=== PATIENT | female | born 1990 | race Caucasian/White ===

== ENCOUNTER → 2018-06-06 14:52 | Outpatient (CLI) | payer SELFPAY ==
--- NOTE | 2018-06-06 14:55 | US_ITS ---
US OB /maternal detail: INDICATION: ITS.REASON: US OB Complete ORDERING PHYSICIAN: Jonn Lopez MD PATIENT AGE: 27 years TECHNIQUE: ultrasound transabdominal scanning. COMPARISON: No previous relevant studies. FINDINGS: Single viable intrauterine gestation. Breech position. Placenta: Anterior placenta grade 1. There is average amount fluid. The cervix appears satisfactory. Closed and measuring 4 cm in length. Complete survey performed and was unremarkable on the submitted images as in PACS. No discrete anomalies identified on survey imaging by technologist. Active fetus. Three-vessel cord with satisfactory umbilical cord insertion. 4- chamber heart noted. Survey of brain & ventricles unremarkable. Face and neck survey unremarkable. Diaphragm and chest views unremarkable. Abdomen: Both kidneys noted and unremarkable. Stomach noted and satisfactory. Spine: Survey of the spine satisfactory with no anomalies identified nor imaged. Both arms and legs noted. Amniotic Fluid: Adequate. Maternal adnexa: No significant findings. Measurements: Average ultrasound age 22w0d. Gestational Age 22w5d. Estimated due date by ultrasound age 210-10-2018. Estimated weight 491 grams. BPD = 21w5d OFD = 22w1d HC = 21w1d AC = 23w0d FL = 21w6d Growth Percentile= 24% Heart Rate = 140 Cerebellum = 22w0d Humerus = 22w2d HC/AC is 1.04 (1.06-1.25). CI is 76% (70-86%). FL/BPD is 72%. FL/AC is 21%(20-24%). IMPRESSION: There is a single live fetus which is in breech presentation with an average ultrasound age of 22 weeks and 0 days. Estimated due date by ultrasound is 10/10/2018. No obvious anomalies. Please see above for detail.
== END ==
PROVIDERS: Family Provider Internal Medicine Adolescent Medicine; PCP Internal Medicine Adolescent Medicine; Visit Provider Nurse Practitioner Obstetrics & Gynecology
DX: Z36.0 Encounter for antenatal screening for chromosomal anomalies (principal)
CPT/HCPCS: 76811

== ENCOUNTER → 2019-12-16 09:59 | Outpatient (CLI) | payer OTHER, SELFPAY ==
--- NOTE | 2019-12-16 10:00 | US_ITS ---
PROCEDURE: US OB /MATERNAL DETAIL CLINICAL INDICATION: ob complete Anatomy scan COMPARISON: OBFEMAT US OB /maternal detail from 06/06/2018 FINDINGS: There is a single live fetus which is in cephalic presentation. heart and body motion is noted. The cervix is closed and measures 4 cm transabdominal. The placenta is posterior and grade 1. Complete survey performed and was unremarkable on the submitted images as in PACS. No discrete anomalies identified on survey imaging by technologist. Active fetus. Three-vessel cord with satisfactory umbilical cord insertion. 4- chamber heart noted. Survey of brain & ventricles Unremarkable. Face and neck survey unremarkable. Diaphragm and chest views unremarkable. Abdomen: Both kidneys noted and unremarkable. Stomach noted and satisfactory. Spine: Survey of the spine satisfactory with no anomalies identified nor imaged. Both arms and legs noted. Amniotic Fluid: Adequate. Maternal adnexa: No significant findings. Measurements: Average ultrasound age 26weeks 4days. Gestational Age 26weeks 4days Estimated due date by ultrasound age 0803/19/2020. Estimated weight 1,009g BPD = 26weeks OFD = 26 weeks 1 day HC = 25weeks 5days AC = 28weeks FL = 26weeks 1day Growth Percentile= 55% Heart Rate = 133bpm Cerebellum = 26weeks 4days Humerus = 26weeks HC/AC is 1 CI is 0.76 FL/BPD is 0.75 FL/AC is 0.2 IMPRESSION: There is a live intrauterine at 26 weeks 4 days in cephalic presentation. heart body motion noted. All parameters correlate. No obvious anomalies. Please see above for detail Dictated by: Elias Yates MD 12/16/2019 14:11 Electronically signed by Elias Yates MD in [place] 12/16/2019 14:11
== END ==
PROVIDERS: PCP Internal Medicine Adolescent Medicine; Visit Provider Nurse Practitioner Obstetrics & Gynecology
DX: Z36.0 Encounter for antenatal screening for chromosomal anomalies (principal)
CPT/HCPCS: 76811

== ENCOUNTER → 2021-05-08 14:48 | Outpatient (CLI) | payer OTHER, SELFPAY ==
--- NOTE | 2021-05-08 14:54 | US_ITS ---
PROCEDURE: US OB /MATERNAL DETAIL CLINICAL INDICATION: 20 wk anatomy scan , US OB COMPLETE COMPARISON: US US OB /MATERNAL DETAIL from 12/16/2019 FINDINGS: Single live IUP is present with an average ultrasound age of 17 weeks 5 days. There is cephalic presentation. The cervix is closed measuring 4 cm. Placenta is posterior and high and grade 1. Complete survey performed and was unremarkable on the submitted images as in PACS. No discrete anomalies identified on survey imaging by technologist. Active fetus. Three-vessel cord with satisfactory umbilical cord insertion. 4- chamber heart noted. Survey of brain & ventricles Unremarkable. Face and neck survey unremarkable. Diaphragm and chest views unremarkable. Abdomen: Both kidneys noted and unremarkable. Stomach noted and satisfactory. Spine: Survey of the spine satisfactory with no anomalies identified nor imaged. Both arms and legs noted. Amniotic Fluid: Adequate. Maternal adnexa: No significant findings. Measurements: Average ultrasound age 17weeks 5days. Gestational Age 17weeks 5days Estimated due date by ultrasound age 0210/11/2021. Estimated weight 204g BPD = 17weeks 5days OFD = 18weeks HC = 17weeks 3days AC = 17weeks 5days FL = 17weeks 6days Growth Percentile= 2 percent% Heart Rate = 149bpm Cerebellum = 17weeks 5days Humerus = 17weeks 4days HC/AC is 1.17 CI is 0.76 FL/BPD is 0.67 FL/AC is 0.21 IMPRESSION: Live IUP in cephalic presentation at 17 weeks 5 days. Estimated weight is 204 g which is 2 percentile assuming patient's LMP is correct. All parameters correlate with no obvious anomalies. Please see above for detail Dictated by: Elias Yates MD 05/08/2021 16:33 Elias Yates MD in [place] 05/08/2021 16:33
== END ==
PROVIDERS: PCP Internal Medicine Adolescent Medicine; Visit Provider Nurse Practitioner Obstetrics & Gynecology
DX: Z36.0 Encounter for antenatal screening for chromosomal anomalies (principal)
CPT/HCPCS: 76811

== ENCOUNTER 2022-12-13 16:53 | Emergency (ER) | payer BC, OTHER, SELFPAY ==
[2022-12-13 17:30] VITALS: BP 151/91; PULSE 105; RESP 18; TEMP 37.4; O2SAT 96; BMI 24.5
--- NOTE | 2022-12-13 17:38 | EXP.UTC ---
Discharge Plan Disposition Patient Disposition: Home, Self-Care Condition: Good Prescriptions Prescriptions: New cephalexin 500 mg capsule 500 mg PO QID Qty: 40 0RF Referrals Follow up/Referrals: Murray Peres MD [Primary Care Provider] - See instructions Activity Restrictions/Add. Instructions Additional Instructions/Restrictions: Drink plenty of fluids. Take tylenol or ibuprofen for pain or fever. Take the medications as directed. Follow up with your regular doctor. Call them in the morning to let them know whats going on. GO TO THE ER FOR ANY WORSENING SYMPTOMS Apply warm wet compresses to the affected sites three or four times per day for 15 minutes as tolerated. Clinical Impressions Clinical Impression: Acute mastitis of left breast Instructions Patient Instructions: DI for Mastitis Discharge ED Provider: Wale Lloyd [facility] General Stated complaint: body aches, poss mastitis Time Seen by Provider: 12/13/22 17:38 History of Present Illness Provider Complaint: She states that for the past 3 days she has had a tender red and warm area on her left breast. She is currently breast feeding her 13 month old child. She denies fever, but she has had malaise since yesterday. Related Data Previous Rx's Medication Instructions Recorded cephalexin 500 mg capsule 500 mg PO QID #40 caps 12/13/22 Allergies Allergy/AdvReac Type Severity Reaction Status Date / Time No Known Allergies Allergy Verified 12/13/22 17:46 [facility] Disclaimer: The information contained in this section may have been updated after the patient was seen, as this information can be updated by other users. Social History Smoking Status: Never smoker alcohol intake: never current occupational status: employed Travel in the last 8 weeks: None ROS Obtained: Yes All systems reviewed & no additional complaints except as documented Constitutional Constitutional: Denies chills and Denies fever(s) Eyes Eyes: Denies eye discharge ENT Ears, Nose, Mouth, and Throat: Denies dizziness, Denies otalgia and Denies sore throat Cardiovascular Cardiovascular: Denies chest pain Respiratory Respiratory: Denies shortness of breath, Denies chest congestion, Denies cough, Denies stridor and Denies wheezing Gastrointestinal Gastrointestingal: Denies nausea or vomiting Musculoskeletal Musculoskeletal: Reports system reviewed and no additional complaints, except as documented and Denies arthralgias Integumentary/Breasts Skin/Breast: Reports as per HPI Neurologic Neurologic: Denies dizziness and Denies paresthesias Allergic/Immunologic Allergic/Immunologic: Denies wheezing Physical Exam General General appearance: alert and in no apparent distress Head Head exam: atraumatic, normocephalic and normal inspection Eye Eye exam: Present normal appearance, PERRL and EOMI ENT ENT exam: Present normal exam, normal oropharynx, mucous membranes moist, TM's normal bilaterally and normal external ear exam Neck Neck exam: Present normal inspection, full ROM and trachea midline; Absent meningismus or lymphadenopathy Chest Chest inspection: Present normal inspection and symmetric chest wall rise; Absent tenderness Expanded Chest Exam Breast: left: erythema and tenderness Respiratory Respiratory exam: Present normal lung sounds bilaterally; Absent respiratory distress Cardiovascular Cardiovascular exam: Present regular rate and normal rhythm; Absent JVD Abdominal Exam Abdominal exam: Present soft and normal bowel sounds; Absent distention, tenderness or guarding Extremities Exam Extremities exam: Present normal inspection, full ROM and normal capillary refill; Absent calf tenderness Back Exam Back exam: Present normal inspection; Absent tenderness Neurological Exam Neurological exam: Present alert and oriented X3 Psychiatric Psychiatric exam: Present normal affect and sol
[2022-12-13 18:50] VITALS: BP 151/91; PULSE 105; RESP 18; TEMP 37.4; O2SAT 96
== END 2022-12-13 18:50 | disposition home or self-care (01) ==
PROVIDERS: Emergency Provider Nurse Practitioner Family; PCP Internal Medicine Adolescent Medicine
DX: N61.0 Mastitis without abscess (principal)
CPT/HCPCS: 96372; 99212; 99214; G0463; J0696

== ENCOUNTER → 2023-03-11 12:57 | Outpatient (CLI) | payer BC, OTHER, SELFPAY ==
--- NOTE | 2023-03-11 12:57 | US_ITS ---
PROCEDURE: US OB <= 14 WEEKS FETUS CLINICAL INDICATION: Dates COMPARISON: No exams were available for comparison FINDINGS: Transvaginal sonographic images of the pelvis were obtained. From her last menstrual period she is 6weeks 5days. An intrauterine gestational sac is present with a pole with a crown-rump length of 0.76cm correlating to gestational age of 6weeks 5days. heart tones are present with an FHR of 118bpm. Yolk sac is noted. The yolk sac measures 3.6mm. The right ovary is seen and appears normal. Measuring 3.6 cm x 3.3 cm x 3.3 cm. There is a 2.8 cm follicle. The left ovary is seen and appears normal. Measuring 2.8 cm x 2.6 cm x 1.4 cm. There are several small peripheral follicles There is no fluid in the cul-de-sac. IMPRESSION: 1. Viable fetus within the uterine cavity. 2. Fetus measures 6 weeks 5 days. 3. Estimated due date by ultrasound is 10/30/2023 4. Both ovaries are seen and appear normal with a follicle in the right ovary. Dictated by: Jonn Lopez MD 03/11/2023 16:54 Jonn Lopez MD in [place] 03/11/2023 16:54
== END ==
LOC: RAD 12:57
PROVIDERS: PCP Internal Medicine Adolescent Medicine; Visit Provider Nurse Practitioner Obstetrics & Gynecology
DX: Z34.91 Encounter for supervision of normal pregnancy, unspecified, first trimester (principal)
CPT/HCPCS: 76801

== ENCOUNTER → 2023-04-15 10:48 | Outpatient (CLI) | payer BC, OTHER, SELFPAY ==
--- NOTE | 2023-04-15 10:50 | US_ITS ---
PROCEDURE: US OB <= 14 WEEKS FETUS CLINICAL INDICATION: bleeding COMPARISON: US US OB <= 14 WEEKS FETUS from 03/11/2023 FINDINGS: Transvaginal sonographic images of the pelvis were obtained. From her established due date she is 11weeks 5days. An intrauterine gestational sac is present with a pole with a crown-rump length of 5.42cm correlating to gestational age of 12weeks 1day. heart tones are present with an FHR of 165bpm. The right ovary is seen and appears normal. The right ovary measures 3.3 cm x 3.5 cm x 2.7 cm. The left ovary is seen and appears normal. The left ovary measures 2.4 cm x 2.9 cm x 1.2 cm. There is no fluid in the cul-de-sac. IMPRESSION: 1. Viable fetus within the uterine cavity. There has been good interval growth, the size and dates are appropriate. 2. No obvious cause for her vaginal bleeding. No evidence of subchorionic hemorrhage. 3. Both ovaries are seen and appear normal. 4. No fluid in the cul-de-sac. Dictated by: Jonn Lopez MD 04/15/2023 16:18 Jonn Lopez MD in [place] 04/15/2023 16:18
== END ==
PROVIDERS: PCP Internal Medicine Adolescent Medicine; Visit Provider Nurse Practitioner Obstetrics & Gynecology
DX: O46.91 Antepartum hemorrhage, unspecified, first trimester (principal)
CPT/HCPCS: 76801

== ENCOUNTER → 2023-05-21 11:53 | Outpatient (CLI) | payer BC, OTHER, SELFPAY ==
[2023-05-21 13:35] LABS: Basophils % 0.3 % (0.1-2.0); Eosinophils # 0.4 K/mm3 (0.0-0.4); Eosinophils % 5.2 % (0.1-12.0); Hematocrit 41.3 % (37.0-47.0); Hemoglobin 13.1 g/dL (12.2-16.2); Lymphocytes % 25.6 % (10-50); Mean Corpuscular HGB Conc 31.8 g/dL (31.8-35.4); Mean Corpuscular Hemoglobin 29.9 pg (27.0-31.2); Mean Corpuscular Volume 93.9 fl (81-99); Mean Platelet Volume 8.9 fl (7.4-10.4); Monocytes # 0.3 K/mm3 (0.1-1.0); Monocytes % 4.1 % (1.7-9.3); Neutrophils # 5.1 K/mm3 (1.8-7.8); Neutrophils % 64.8 % (37.0-80.0); Platelet Count 195 K/mm3 (142-424); Red Cell Distribution Width 13.4 % (11.5-17.5); White Blood Count 7.9 K/mm3 (4.8-10.8)
[2023-05-23 14:43] LABS: Rapid Plasma Reagin Ab Titer Non Reactive titer (NonRea<1:1)
[2023-05-28 08:27] LABS: HIV Screen 4th Generation wRfx Non Reactive; Hepatitis B Surface Antigen Negative; Hepatitis C Antibody Non Reactive
[2023-05-28 08:28] LABS: Rubella Antibodies, IgG 1.06
== END ==
PROVIDERS: PCP Internal Medicine Adolescent Medicine; Visit Provider Obstetrics & Gynecology
DX: Z34.92 Encounter for supervision of normal pregnancy, unspecified, second trimester (principal); Z3A.16 16 weeks gestation of pregnancy
CPT/HCPCS: 36415; 85025; 86593; 86703; 86762; 86850; 87086; 87340; 87380; G0432

== ENCOUNTER → 2023-06-11 12:47 | Outpatient (CLI) | payer BC, OTHER, SELFPAY ==
--- NOTE | 2023-06-11 12:48 | US_ITS ---
PROCEDURE: US OB /MATERNAL DETAIL CLINICAL INDICATION: 20 week anatomy scan COMPARISON: US US OB <= 14 WEEKS FETUS from 04/15/2023 FINDINGS: Transabdominal sonographic images of the pelvis were obtained. From her established due date she is 19 weeks 6 days. Single viable intrauterine gestation. Cephalic position. Placenta: Posteriorplacenta grade 1. The placenta is low lying and currently 0.76 cm from the internal os. There is an average amount of fluid. The cervix appears satisfactory. Closed and measuring 4.5 cm in length. Complete survey performed and was unremarkable on the submitted images as in PACS. No discrete anomalies identified on survey imaging by technologist. Active fetus. Three-vessel cord with satisfactory umbilical cord insertion. 4- chamber heart noted. Situs, aortic arch, RVOT, LVOT, three-vessel view appear normal. Survey of brain & ventricles Unremarkable. Choroid plexus, cerebellum, cisterna magna, thalamus appear normal. Face and neck survey unremarkable. Profile, nasion, lips and nose appeared normal. Diaphragm and chest views unremarkable. Abdomen: Both kidneys noted and unremarkable. Stomach and bladder noted and satisfactory. Spine: Survey of the spine satisfactory with no anomalies identified nor imaged. Cervical, thoracic and lower spine appear normal. Both arms and legs noted. Amniotic Fluid: Adequate. Measurements: Average ultrasound age 19weeks 5days. Estimated due date by ultrasound age 0310/31/2023. Estimated weight 296g BPD = 19weeks 4days HC = 19weeks 6days AC = 19weeks 4days FL = 19weeks 4days Growth Percentile= 27 Heart Rate = 143bpm Cerebellum = 19weeks Humerus = 20weeks 2days HC/AC is 1.22 FL/BPD is 0.68 FL/AC is 0.22 IMPRESSION: 1. Viable fetus in the cephalic presentation with a posterior placenta grade 1. 2. The fluid is within normal limits. 3. The placenta is posterior, low lying and currently 0.76 cm from the internal os. Suggest repeat scan at 28 weeks. 4. The anatomical scan appears normal. 5. biometry is consistent with the dates. Dictated by: Jonn Lopez MD 06/11/2023 17:01 Jonn Lopez MD in [place] 06/11/2023 17:01
== END ==
PROVIDERS: PCP Internal Medicine Adolescent Medicine; Visit Provider Obstetrics & Gynecology
DX: Z34.92 Encounter for supervision of normal pregnancy, unspecified, second trimester (principal); Z3A.20 20 weeks gestation of pregnancy
CPT/HCPCS: 76811

== ENCOUNTER 2023-07-30 16:04 | Emergency (ER) | payer BC, OTHER, SELFPAY ==
--- NOTE | 2023-07-30 16:38 | EXP.UTC ---
Discharge Plan Disposition Patient Disposition: Home, Self-Care Condition: Good Prescriptions Prescriptions: New oseltamivir [Tamiflu] 75 mg capsule 75 mg PO BID Qty: 10 0RF No Action Classic 28 mg iron- 800 mcg tablet 1 tab PO DAILY Qty: 60 5RF albuterol sulfate 90 mcg/actuation HFA aerosol inhaler 1 inh inhalation DAILY fluticasone propion-salmeterol 250-50 mcg/dose blister with device 1 inh inhalation BID Referrals Follow up/Referrals: Murray Peres MD [Primary Care Provider] - See instructions Activity Restrictions/Add. Instructions Additional Instructions/Restrictions: Drink plenty of fluids. Take tylenol for pain or fever. Take the medications as directed. Follow up with your regular doctor. 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 GO TO THE ER FOR ANY WORSENING SYMPTOMS Clinical Impressions Clinical Impression: Influenza A, Instructions Patient Instructions: DI for Influenza -- Adult Discharge ED Provider: Wale Lloyd [facility] General Stated complaint: cough, runny nose, fever, sore throat Time Seen by Provider: 07/30/23 16:38 History of Present Illness Provider Complaint: She states that she has ran a fever, had chest congestion, body aches and chills since yesterday. She is 27 weeks . Related Data Home Medications Medication Instructions Recorded Confirmed albuterol sulfate 90 mcg/actuation 1 inh inhalation DAILY asthma 06/18/23 07/30/23 aerosol inhaler fluticasone 250 mcg-salmeterol 50 1 inh inhalation BID asthma 07/30/23 07/30/23 mcg/dose blistr powdr for inhalation Previous Rx's Medication Instructions Recorded vits no.126-ferrous fum 1 tab PO DAILY #60 tabs 05/21/23 28 mg iron-folic acid 800 mcg tablet (Classic ) oseltamivir 75 mg capsule (Tamiflu) 75 mg PO BID #10 caps 07/30/23 Allergies Allergy/AdvReac Type Severity Reaction Status Date / Time No Known Allergies Allergy Verified 07/30/23 17:[address] [facility] Disclaimer: The information contained in this section may have been updated after the patient was seen, as this information can be updated by other users. Medical History Asthma affecting , antepartum Grand multipara Maternal rheumatoid arthritis complicating Request for sterilization Rheumatoid arthritis Rheumatoid arthritis Surgical History H/O hernia repair History of palate surgery History of placement of ear tubes Family History Grandmother Diabetes Social History Smoking Status: Never smoker alcohol intake: never current occupational status: employed Travel in the last 8 weeks: None ROS Obtained: Yes All systems reviewed & no additional complaints except as documented Constitutional Constitutional: Reports chills and Reports fever(s) Eyes Eyes: Denies eye discharge ENT Ears, Nose, Mouth, and Throat: Reports as per HPI Cardiovascular Cardiovascular: Denies chest pain Respiratory Respiratory: Denies chest congestion and Reports cough Gastrointestinal Gastrointestingal: Reports nausea; Denies abdominal pain, constipation, cramping, diarrhea or vomiting Musculoskeletal Musculoskeletal: Denies arthralgias Integumentary/Breasts Skin/Breast: Denies rash Neurologic Neurologic: Denies paresthesias Physical Exam General General appearance: alert and in no apparent distress Head Head exam: atraumatic, normocephalic and normal inspection Eye Eye exam: Present normal appearance, PERRL and EOMI ENT ENT exam: Present normal exam, normal oropharynx, mucous membranes moist, TM's normal bilaterally and normal external ear exam Neck Neck exam: Present normal inspection, full ROM and trachea midline; Absent meningismus or
[2023-07-30 16:40] VITALS: BP 124/72; PULSE 109; RESP 18; TEMP 36.9; O2SAT 96; BMI 29.5
[2023-07-30 16:47] LABS: UTC Influenza A Antigen Positive (Negative); UTC Influenza B Antigen Negative (Negative)
[2023-07-30 17:23] VITALS: BP 124/72; PULSE 109; RESP 18; TEMP 36.9; O2SAT 96
== END 2023-07-30 17:23 | disposition home or self-care (01) ==
PROVIDERS: Emergency Provider Nurse Practitioner Family; PCP Internal Medicine Adolescent Medicine
DX: O98.513 Other viral diseases complicating pregnancy, third trimester (principal); J10.1 Influenza due to other identified influenza virus with other respiratory manifestations; Z3A.27 27 weeks gestation of pregnancy; R50.9 Fever, unspecified; R05.9 Cough, unspecified; R07.0 Pain in throat; R09.81 Nasal congestion; R09.89 Other specified symptoms and signs involving the circulatory and respiratory systems; M79.18 Myalgia, other site
CPT/HCPCS: 87804; 99212; 99214; G0463

== ENCOUNTER → 2023-08-14 12:51 | Outpatient (CLI) | payer BC, OTHER, SELFPAY ==
--- NOTE | 2023-08-14 12:53 | US_ITS ---
PROCEDURE: US OB BIOPHYSICAL PROFILE CLINICAL INDICATION: sga/for placental growth and location COMPARISON: FINDINGS: Transabdominal and transvaginal sonographic images of the uterus were obtained. From her established due date she is 29weeks 0 days.. The following parameters are obtained: Viable fetus in the breech presentation with a posterior placenta grade 2 Average ultrasound age is 30weeks 1day. Estimated due date by ultrasound is 10/22/2023. Estimated weight is 3lb 1oz, 1395 grams. Cervix measures 4.1 cm. The posterior placenta is now 4.2 cm away from the internal cervical os when seen transvaginally. heart rate: 147bpm bpm. BPD: 29weeks 4days OFD: 29weeks 4days HC: 30 weeks 5 days AC: 28 weeks 5 days FL: 30 weeks 0 days HC/AC: 1.15 Cephalic index: 0.8 FL/BPD: 0.74 FL/AC: 0.23 54 percentile Amniotic fluid index: 18.16cm, MVP 6.73 cm. Qualitative AFV: 2 breathing movements: 0 Gross body movements: 2 Tone: 2 Biophysical profile score: 6 No obvious anomalies evident.Kidneys, profile, stomach, bladder, four-chamber heart, three-vessel cord appear normal. IMPRESSION: 1. Viable fetus in the breech presentation with a posterior placenta grade 2. 2. The fluid is within normal limits with an amniotic fluid index of 18.16 cm, MVP 6.73 cm. 3. The posterior placenta is no longer low lying and is now 4.2 centimeters from the cervical internal os. 4. Biophysical profile 6/8 with no breathing movement seen today. Fetus is active. 5. There has been good interval growth with the fetus currently 54th percentile. Dictated by: Jonn Lopez MD 08/18/2023 12:35 Jonn Lopez MD in [place] 08/18/2023 12:35
[2023-08-14 14:41] LABS: Basophils % 0.4 % (0.1-2.0); Eosinophils # 0.6 K/mm3 (0.0-0.4); Eosinophils % 5.8 % (0.1-12.0); Hematocrit 38.4 % (37.0-47.0); Hemoglobin 12.9 g/dL (12.2-16.2); Lymphocytes # 1.8 K/mm3 (0.7-4.5); Mean Corpuscular HGB Conc 33.7 g/dL (31.8-35.4); Mean Platelet Volume 8.8 fl (7.4-10.4); Monocytes # 0.5 K/mm3 (0.1-1.0); Monocytes % 5.8 % (1.7-9.3); Neutrophils # 6.5 K/mm3 (1.8-7.8); Neutrophils % 69.1 % (37.0-80.0); Platelet Count 216 K/mm3 (142-424); Red Blood Count 4.18 M/mm3 (4.20-5.40); Red Cell Distribution Width 13.3 % (11.5-17.5); White Blood Count 9.4 K/mm3 (4.8-10.8)
[2023-08-14 15:14] LABS: Glucose,Fasting 91 mg/dl (74-100)
[2023-08-14 17:29] LABS: Glucose 1 Hour 168 mg/dL (74-100)
== END ==
PROVIDERS: PCP Internal Medicine Adolescent Medicine; Visit Provider Obstetrics & Gynecology
DX: O36.5930 Maternal care for other known or suspected poor fetal growth, third trimester, not applicable or unspecified (principal); Z36.89 Encounter for other specified antenatal screening; Z3A.29 29 weeks gestation of pregnancy
CPT/HCPCS: 36415; 76816; 76819; 82951; 85025

== ENCOUNTER → 2023-08-17 08:03 | Outpatient (CLI) | payer BC, OTHER, SELFPAY ==
[2023-08-17 08:33] LABS: Glucose,Fasting 106 mg/dl (74-100)
[2023-08-17 10:03] LABS: Glucose 1 Hour 158 mg/dL (74-100)
[2023-08-17 10:56] LABS: Glucose 2 Hour 133 mg/dL (74-100)
[2023-08-17 11:52] LABS: Glucose 3 Hour 89 mg/dL (74-100)
== END ==
PROVIDERS: PCP Internal Medicine Adolescent Medicine; Visit Provider Obstetrics & Gynecology
DX: Z34.93 Encounter for supervision of normal pregnancy, unspecified, third trimester (principal); Z3A.29 29 weeks gestation of pregnancy; R73.09 Other abnormal glucose
CPT/HCPCS: 36415; 82951

== ENCOUNTER 2023-09-05 14:37 | Outpatient (CLI) | payer BC, OTHER, SELFPAY ==
--- NOTE | 2023-09-05 14:44 | XR_ITS ---
FINAL REPORT CLINICAL HISTORY: cp/dyspnea/ COMPARISON: None FINDINGS: Two views of the chest were obtained. The heart size and pulmonary vascularity are within normal limits. The mediastinum is normal. No acute pulmonary abnormality is identified. There is no pneumothorax. The bony thorax is intact. IMPRESSION: No active cardiopulmonary disease. Reviewed, Interpreted and Dictated by Kenji Jiménez III, MD Transcribed by Hayley Meyers Authenticated and [facility]
[2023-09-05 15:41] LABS: NT Pro Brain Natriuretic Pep. < 20.0 pg/mL (0-125)
== END 2023-09-05 23:59 ==
LOC: LAB 14:39
PROVIDERS: PCP Internal Medicine Adolescent Medicine; Visit Provider Physician Assistant
DX: R00.0 Tachycardia, unspecified (principal); R06.00 Dyspnea, unspecified; R07.9 Chest pain, unspecified; R42 Dizziness and giddiness; R53.83 Other fatigue; R60.0 Localized edema
CPT/HCPCS: 36415; 71046; 83880; 93270

== ENCOUNTER 2023-09-17 13:05 | Outpatient (CLI) | payer BC, OTHER, SELFPAY ==
--- NOTE | 2023-09-17 13:05 | CA_ITS ---
APPROVED REPORT EXAM: Comprehensive 2D, Doppler, and color-flow Echocardiogram Director Database: Lorraine Cannon CRT Ht: 5 ft 9 in Wt: 207lbs BSA: 2.10 BP: 137/84 mmHg Rhythm: 84 Indications: Preg 32 wks 8 th child, cp, sob, palp 2D Dimensions LA Volume 32.60 mL LA Volume Index 15.20 mL/m2 (M/F) 16-34 M-Mode Dimensions RVDd 2.20 cm (0.9-2.6) LA Diam 3.34 cm (1.9-4.0) LVDd 4.58 cm (3.5-5.7) LVDs 2.78 cm (3.5-5.7) IVSd 1.01 cm (0.6-1.1) PWd 0.72 cm (0.6-1.1) EF (Teich) 69.90% FS 39.30% EDV (Teich) 96.30 mL ESV (Teich) 29.00 mL LV Diastology E Decel Time 160 (160-240 msec) E/A Ratio 1.37 MED A' 9.00 cm/s LAT A' 9.40 cm/s Aortic Valve AO Peak GR. 13.90 mmHg Mitral Valve MV E Max Ronnie. 73.0 (40-130 cm/s) MV A Velocity 53.0 (40-130 cm/s) E/A Ratio 1.37 MV PHT 47.0 ms Pulmonary Valve PV Peak Velocity 133.0 (50-150 cm/s) Tricuspid Valve TR P. Velocity 173.00 cm/s RAP Estimate 10.00 mmHg RVSP 22.00 mmHg Left Ventricle The left ventricle is normal size. The left ventricular systolic function is normal. The left ventricular ejection fraction is within the normal range. There is normal left ventricular wall thickness. There is normal LV segmental wall motion. The left ventricular diastolic function is normal. LVEF is 60%. Right Ventricle The right ventricle is normal size. The right ventricular systolic function is normal. Atria The left atrium size is normal. The right atrium size is normal. There is no Doppler evidence of interatrial shunt. Aortic Valve The aortic valve is normal in structure. The aortic valve is trileaflet. There is no aortic valvular stenosis. No aortic regurgitation is present. Mitral Valve The mitral valve is normal in structure. No evidence of mitral valve stenosis. There is no mitral valve regurgitation noted. Tricuspid Valve The tricuspid valve leaflets are thin and pliable. Trace tricuspid regurgitation. There is insufficient TR jet to estimate RVSP. Pulmonic Valve The pulmonary valve is normal in structure. Trace pulmonic regurgitation. Great Vessels The aortic root is normal in size. The ascending aorta is normal in size. IVC is normal in size and collapses >50% with inspiration. Pericardium There is no pericardial effusion. Other Information Study Quality: Adequate Conclusion Normal biventricular systolic function. No significant valvular stenosis or regurgitation. Electronically signed by : Chantell Lazcano MD 09/19/2023 11:47:57
== END 2023-09-17 23:59 ==
PROVIDERS: PCP Internal Medicine Adolescent Medicine; Visit Provider Physician Assistant
DX: R07.9 Chest pain, unspecified (principal); R06.00 Dyspnea, unspecified; R00.0 Tachycardia, unspecified; R42 Dizziness and giddiness; R53.83 Other fatigue; R60.0 Localized edema
CPT/HCPCS: 93306

== ENCOUNTER 2023-09-20 13:59 | Outpatient (CLI) | payer BC, OTHER, SELFPAY ==
--- NOTE | 2023-09-20 13:59 | US_ITS ---
PROCEDURE: US OB BIOPHYSICAL PROFILE CLINICAL INDICATION: Maternal Asthma COMPARISON: US US OB /MATERNAL DETAIL from 06/11/2023 US US OB BIOPHYSICAL PROFILE from 08/14/2023 FINDINGS: Transabdominal sonographic images of the uterus were obtained. From her established due date she is 34weeks 2days. The following parameters are obtained: Viable Fetus in the breech presentation with a posterior placenta grade 2. Average ultrasound age is 35weeks 2days Estimated weight 2,562g, 5 lb 10 oz. Cervix measures 4.55 cm. Measurements: heart Rate = 136bpm BPD = 34weeks 6days OFD = 36weeks 1day HC = 36weeks 2days AC = 35weeks FL = 34weeks 6days HC/AC is 1.04 Cephalic Index is 0.78 FL/BPD is 0.79 FL/AC is 0.22 65 percentile Amniotic fluid index: 16.69cm, MVP 5.26 cm. Qualitative AFV:2 Breathing movements: 2 Gross Body Movements: 2 Tone: 2 Biophysical profile score: 8 No obvious anomalies evident.Kidneys, profile, nasion, bladder, diaphragm, four-chamber heart, three-vessel cord appear normal. IMPRESSION: 1. Viable fetus in the BREECH presentation with a posterior placenta grade 1. 2. The fluid is within normal limits with an amniotic fluid index of 16.69 cm. MVP 5.26 cm. 3. Biophysical profile is 8/8 with good breathing movement and movement seen. 4. Fetus has shown good interval growth and is currently 65th percentile. Dictated by: Jonn Lopez MD 09/21/2023 07:03 Jonn Lpoez MD in [place] 09/21/2023 07:03
== END 2023-09-20 23:59 ==
LOC: RAD 13:59
PROVIDERS: PCP Internal Medicine Adolescent Medicine; Visit Provider Obstetrics & Gynecology
DX: O99.513 Diseases of the respiratory system complicating pregnancy, third trimester (principal); Z3A.34 34 weeks gestation of pregnancy; J45.909 Unspecified asthma, uncomplicated
CPT/HCPCS: 76816; 76819

== ENCOUNTER 2023-10-25 05:15 | Inpatient (IN) | payer BC, OTHER, SELFPAY ==
[2023-10-25] VITALS (7 sets, daily range): BP systolic 110–140; BP diastolic 67–85; PULSE 67–96; RESP 12–18; TEMP 36.3–37.1; O2SAT 95–99; BMI 31.8
[2023-10-25] MEDS: LACTATED RINGERS 1000ML 1,000 ML 999 ML IV ×2 (06:00→06:58)
[2023-10-25 06:14] LABS: Microscopic, Urine URINE MICROSCOPIC (MICROSCOPIC)
[2023-10-25 06:29] LABS: Appearance,Urine CLEAR (Clear); Blood, Urine Negative (Negative); Color,Urine YELLOW (Yellow); Glucose,Urine (UA) Negative (Negative); Ketones,Urine Negative (Negative); Leukocyte Esterase,Urine Negative (Negative); Nitrate,Urine Negative (Negative); Protein,Urine TRACE (Negative); Specific Gravity, Urine 1.025 (1.005-1.030); Urobilinogen,Urine 0.2 EU/dl (0.2)
[2023-10-25 06:38] LABS: Basophils # 0.1 K/mm3 (0-0.2); Basophils % 0.7 % (0.1-2.0); Eosinophils # 0.3 K/mm3 (0.0-0.4); Eosinophils % 3.2 % (0.1-12.0); Hematocrit 40.1 % (37.0-47.0); Hemoglobin 13.1 g/dL (12.2-16.2); Lymphocytes # 2.1 K/mm3 (0.7-4.5); Lymphocytes % 25.5 % (10-50); Mean Corpuscular HGB Conc 32.6 g/dL (31.8-35.4); Mean Corpuscular Hemoglobin 31.1 pg (27.0-31.2); Mean Corpuscular Volume 95.6 fl (81-99); Mean Platelet Volume 10.2 fl (7.4-10.4); Monocytes # 0.5 K/mm3 (0.1-1.0); Monocytes % 6.6 % (1.7-9.3); Neutrophils # 5.2 K/mm3 (1.8-7.8); Neutrophils % 63.9 % (37.0-80.0); Platelet Count 188 K/mm3 (142-424); Red Blood Count 4.19 M/mm3 (4.20-5.40); Red Cell Distribution Width 14.9 % (11.5-17.5); White Blood Count 8.1 K/mm3 (4.8-10.8)
--- NOTE | 2023-10-25 07:07 | HMH.PHAINT1 ---
Pharmacy Intervention Comments: MEDICATION RECONCILIATION COMPLETED ON PATIENT USING EXTERNAL FILL HISTORY FROM PHARMACY. -SKYLAR BALLESTEROS, TWIND
[2023-10-25 07:13] LABS: Alanine Aminotransferase 20 U/L (12-78); Albumin Level 3.6 g/dl (3.5-5.0); Albumin/Globulin Ratio 1.1 (1.1-1.8); Alkaline Phosphatase 163 U/L (38-126); Anion Gap 9.8 mEq/L (5-15); Aspartate Amino Transferase 31 U/L (14-36); Bilirubin,Total 0.5 mg/dl (0.2-1.3); Blood Urea Nitrogen 14 mg/dl (7-17); Calcium 8.7 mg/dl (8.4-10.2); Carbon Dioxide 20 mmol/L (22.0-30.0); Chloride 107 mmol/L (98-107); Creatinine Clearance Estimated 245 mL/min (50-200); Estimated Glomerular Filt Rate 141 ml/min (>60); GFR (African American) 171 ML/MIN (>60); Globulin 3.2 g/dL (1.3-3.2); Glucose 103 mg/dl (74-100); Potassium 3.8 mmoL/L (3.5-5.1); Sodium 133 mmol/L (136-145); Total Protein,Serum 6.8 g/dl (6.3-8.2)
[2023-10-25 07:14] LABS: Bilirubin,Urine Negative (Negative)
--- NOTE | 2023-10-25 07:22 | P.HP_ITS ---
OB - H&P: HPI Antepartum History of Present Illness Chief complaint: Scheduledc-section History of present illness: Mrs Tiarra Goldman is a 33 yo at 39w2d who presents to [facility] for scheduled primary and tubal ligation. She has had good care. At first visit, she voiced request for elective . She was diagnosed with RA and recent hip xray demonstrated bilateral impingement. In addition, baby is breech presentation. She is complete with childbearing and desires permanent sterilization. History of Present Criteria for establishing EDC:: based on 2nd trimester US only care: good care Ultrasounds: normal mid trimester US Obstetrical complications: none Medical complications: none Labs Blood type: O (+) positive Rubella: immune RPR/VDRL: nonreactive HBsAG: negative [facility] Disclaimer: The information contained in this section may have been updated after the patient was seen, as this information can be updated by other users. Medical History (Updated 10/25/23 @ 07:27 by Lucero Carreon DO) with 39 completed weeks gestation Breech presentation Asthma exacerbation Asthma affecting , antepartum Maternal rheumatoid arthritis complicating Request for sterilization Rheumatoid arthritis Grand multipara Surgical History H/O hernia repair History of palate surgery History of placement of ear tubes Family History Grandmother Diabetes Social History (Updated 10/25/23 @ 05:56 by Cora Rosas RN) Smoking Status: Never smoker alcohol intake: never substance use type: denies use current occupational status: unemployed Travel in the last 8 weeks: None household members: spouse and children marital status: do you feel safe at home: Yes victim of physical abuse: No victim of emotional abuse: No victim of sexual abuse: No Review of Systems Review of Systems Review of systems:: pertinent systems reviewed and negative unless documented below Meds Home Medications and Allergies Home Medications Medication Instructions Recorded Confirmed Type albuterol sulfate 90 mcg/actuation 2 puff inhalation Q6HP PRN 06/18/23 10/25/23 History aerosol inhaler Shortness Of Breath fluticasone 250 mcg-salmeterol 50 2 inh inhalation BID #60 ea 08/14/23 10/25/23 Rx mcg/dose blistr powdr for inhalation (Advair Diskus) omeprazole 20 mg capsule,delayed 20 mg PO HS 10/25/23 10/25/23 History release vits no.126-ferrous fum 1 tab PO DAILY Supplement 10/25/23 10/25/23 History 28 mg iron-folic acid 800 mcg tablet (Classic ) New Prescriptions to Start Prescriptions: Allergies Allergy/AdvReac Type Severity Reaction Status Date / Time No Known Allergies Allergy Verified 10/17/23 15:32 OB - H&P: Exam Physical Exam Vital signs: Temp Pulse Resp BP Pulse Ox O2 Del Method 98.1 F 96 H 18 140/85 97 Room Air 10/25/23 06:15 10/25/23 06:15 10/25/23 06:15 10/25/23 06:15 10/25/23 06:15 10/25/23 06:15 Constitutional no acute distress and cooperative Routine HEENT Exam Head: Present normocephalic and atraumatic Eye: Absent conjunctivae pink ENT: Present mucous membranes moist Routine Neck Exam Present full ROM Routine Respiratory Exam Present CTA bilaterally and normal respiratory effort Routine Cardiovascular Exam Present RRR Routine Abdominal Exam Present soft (Gravid); Absent tenderness Routine Rectal Exam Patient deferred: visual exam Routine Exam External: Present normal urethra appearance; Absent erythema, tenderness, lesions or lacerations Routine Extremities Exam Present edema (+1 bilateral lower extremity edema) and full ROM; Absent calf tenderness Routine Neurological Exam Present alert, moving all extremities and normal speech OB - Results Labs Labs: Short CBC 10/25/23 Range/Units 06:10 WBC 8.1 (4.8-10.8) K/mm3 Hgb 13.1 (12.2-16.2) g/dL Hct 40.1 (37.0-47.0) % Plt Count 188 (142-424) K/mm3 BMP 10/25/23 06:10 Sodium 133 L Potassium 3.8 Chloride 107 Carbon Dioxide 20 L BUN 14 Creatinine 0.50 L Glucose 103 H Calcium 8.7 Liver Function 10/25/23 Range/Units 06:10 Total Bilirubin 0.5 (0.2-1.3) mg/dl AST 31 (14-36) U/L ALT 20 (12-78) U/L Alkaline Phosphatase 163 H (38-126) U/L Albumin 3.6 (3.5-5.0) g/dl Urine 10/25/23 Range/Units 05:32 Urine Color Yellow (Yellow) Urine Appearance Clear (Clear) Urine pH 6.0 (5.0-8.5) Ur Specific [place] 1.025 (1.005-1.030) Urine Protein Trace (Negative) Urine Glucose (UA) Negative (Negative) OB - A/P Antepartum (1) with 39 completed weeks gestation: Status: Acute (2) Breech presentation: Status: Acute (3) Maternal rheumatoid arthritis complicating : Status: Acute (4) Asthma affecting , antepartum: Status: Acute (5) Grand multipara: Status: Acute (6) Request for sterilization: Status: Acute Additional Plan Planning to breastfeed?: Yes Additional Information:: Admit to [facility] for scheduled primary with bilateral salpingectomy Reviewed risks, benefits, expectations and possible complications. All questions addressed and answered. She voiced understanding of risks and possible complications. Consent form signed Proceed with scheduled primary , bilateral salpingectomy
[2023-10-25 07:35] LABS: Bacteria,Urine Trace /lpf; WBC,Urine Occasional #/hpf (0-3)
--- NOTE | 2023-10-25 08:40 | P.OP_ITS ---
Date of procedure: 10/25/23 Pre-op Diagnosis:: 1. IUP at 39w2d 2. Maternal RA 3. Breech presentation 4. Asthma affecting 5. Grand multipara 6. Complete family status, desires permanent sterilization Post-op Diagnosis:: 1. IUP at 39w2d 2. Maternal RA 3. Breech presentation 4. Asthma affecting 5. Grand multipara 6. Complete family status, desires permanent sterilization Procedure performed:: Primary Low Transverse Section, Bilateral salpingectomy Surgeon:: Lucero Carreon DO Patient Financial Advocate(s):: Kayla Birmingham DO [employer]:: Reji Pop Anesthesia: spinal Estimated blood loss (mL): 500 Clinical Note:: Mrs Tiarra Goldman is a 33 yo at 39w2d who presents to [facility] for scheduled primary and tubal ligation. She has had good care. At first visit, she voiced request for elective . She was diagnosed with RA and recent hip xray demonstrated bilateral impingement. In addition, baby is breech presentation. She is complete with childbearing and desires permanent sterilization. Operative findings:: 1. Live male baby, Tobin Echevarria, 8 lb 14 oz, APGARs 9 (1 min), 9 (5 min) 2. Grossly normal appearing uterus, bilateral fallopian tubes and ovaries Operative note:: The risks, benefits and alternatives of the procedure were reviewed with the patient. Informed consent was obtained. Patient was taken to the operating room where spinal anesthesia was placed. The patient received 2 grams of Ancef preoperatively. Patient was placed in dorsal supine position with a leftward tilt. SCDs in place. Herrera catheter had been placed and was draining clear urine prior to the start of the procedure. heart tones were obtained. Patient was then prepped and draped in normal sterile fashion. Allis clamp test was performed to ensure adequate anesthesia. A Pfannenstiel skin incision was made 2 cm above pubic symphysis. This was carried through to underlying layer of fascia. Fascia was incised in midline, extended laterally with Miranda scissors. Superior aspect of fascial incision was grasped with two Mel clamps, elevated up, and rectus muscle dissected off bluntly and sharply with Miranda scissors. Inferior aspect of fascial incision was grasped with two Mel clamps, elevated up, and rectus muscle dissected off bluntly and sharply with Miranda scissors. The retcus muscle was then in the midline and the peritoneum was entered bluntly with a digit. Peritoneal incision was then extended superiorly and inferiorly with good visualization of the bladder. Jaleel retractor was inserted. The lower uterine segment was incised in a transverse fashion. Clear amniotic fluid was noted. Cephalic presentation was noted. Head was delivered without difficulty. Remainder of body was delivered without difficulty. Mouth and nares were bulb suctioned. Spontaneous cry was noted. Delayed cord clamping was performed for 60 seconds. The umbilical cord was clamped and cut. The was handed to awaiting pediatric staff in stable condition. Dr. Peres was present. Apgars were 9(1 min), 9(5 min). Cord blood was obtained. Gentle traction on the umbilical cord and uterine fundal massage delivered the placenta. Placenta was intact. Uterus was cleared of all clots and debris with a moist laparotomy sponge. Corners of the uterine incision were grasped with Allis clamps. The uterine incision was reapproximated with # 1 Vicryl suture in a running, locked stitch. Second layer of the same stitch was used to imbricate the incision. Vesicouterine peritoneum was reapproximated in a running locked stitch with 0- Vicryl suture. Hemostasis was noted. Posterior cul-de-sac was cleaned with moist laparotomy sponge. Gutters cleared of all clots and debris with a moist laparotomy sponge. Reinspection of the lower uterine segment demonstrated hemostasis. At this point all instruments and sponges were removed from the pelvis.? The peritoneum was grasped with Mely clamps x 3. The peritoneum was reapproximated with 0 Vicryl suture in a running stitch. The corners of the fascia were grasped with Mel clamps, and the fascia was reapproximated with two # 1 Vicryl suture overlapped to the right of midline. Subcutaneous tissue was irrigated with clear return of fluids. The subcutaneous tissue was reapproximated with 3-0 Vicryl. The skin was reapproximated with Insorb christopher. Telfa was placed over closed Pfannenstiel skin incision. At the end of the procedure, the uterus was firm with minimal vaginal bleeding. Patient tolerated the procedure well. Instrument, sponges and needle counts were correct x 2. Mom and baby were transported to recovery room in stable condition. Condition: stable Disposition: floor Specimens:: 1. Bilateral fallopian tubes Complications:: None
--- NOTE | 2023-10-25 08:47 | P.PNANES_ITS ---
[facility] Disclaimer: The information contained in this section may have been updated after the patient was seen, as this information can be updated by other users. Medical History (Updated 10/25/23 @ 07:27 by Lucero Carreon DO) with 39 completed weeks gestation Breech presentation Asthma exacerbation Asthma affecting , antepartum Maternal rheumatoid arthritis complicating Request for sterilization Rheumatoid arthritis Grand multipara Surgical History H/O hernia repair History of palate surgery History of placement of ear tubes Family History Grandmother Diabetes Social History (Updated 10/25/23 @ 05:56 by Cora Rosas RN) Smoking Status: Never smoker alcohol intake: never substance use type: denies use current occupational status: unemployed Travel in the last 8 weeks: None household members: spouse and children marital status: do you feel safe at home: Yes victim of physical abuse: No victim of emotional abuse: No victim of sexual abuse: No [facility] Anesthesia Checklist Patient Identification Patient Identification: Verbal (Name & ) Structural Data Admitted From: Inpatient Planned Operative Procedure/s: c/section Consent for Planned Operative Procedure(s) Verified: Yes NPO Status Verified Time NPO: 00:00 Airway Assessment Mallampati Score:: Class II C-Spine Mobility Assessed: Yes TMJ Mobility Assessed: Yes Dentition: Good Dentition Neurological Assessment Level of Consciousness: Awake, Alert and Appropriate Anesthesia Plan Anesthesia Risk discussed: Yes Anesthesia Plan: Verified ASA Class: II Anesthesia Type: Spinal Preoperative Comments Pre-Operative Comments: tap block exp to pt incl risks, pt agrees to proceed
--- NOTE | 2023-10-25 08:49 | P.PNANES_ITS ---
[facility] Anesthesia Record Part I Anesthesia Record I Intake, IV Amount: 1,800 Hydration: Adequate Estimated blood loss (mL): 500 Urine output (mL): 250 Blood Pressure: 111/67 SaO2: 97 Pulse Rate: 67 Airway Patency: Patent Respiratory Rate: 12 Temperature: 97.5 F Patient is:: Awake and Stable Stable to PACU at:: 08:43
[2023-10-25 09:21] LABS: Amphetamine/Metha Screen,Urine Negative ng/ml (<1000)
[2023-10-25 09:22] LABS: Barbiturates Screen,Urine Negative ng/ml (<200)
[2023-10-25 09:23] LABS: Benzodiazepines Screen,Urine Negative ng/ml (<200); Cannabinoid Screen,Urine Negative ng/ml (<50)
[2023-10-25 09:24] LABS: Cocaine Screen,Urine Negative ng/ml (<300); Methadone Screen,Urine Negative ng/ml (<300)
[2023-10-25 09:25] LABS: Opiate Screen,Urine Negative ng/ml (<300)
[2023-10-25 09:26] LABS: Phencyclidine Screen,Urine Negative ng/ml (<25)
[2023-10-25] MEDS: LACTATED RINGERS 1000ML 1,000 ML 125 ML IV (09:26)
[2023-10-25] MEDS: OXYTOCIN/RINGERS LACTATE 30 UNITS/500 ML BAG 40 UNITS IV (09:26)
[2023-10-25] MEDS: ACETAMINOPHEN 500MG TAB 1000 MG PO ×2 (12:21→18:37)
[2023-10-25 13:54] LABS: Microscopic,Cath URINE MICROSCOPIC (MICROSCOPIC)
[2023-10-25 14:21] LABS: Appearance,Urine/Cath CLEAR (Clear); Bilirubin,Cath Negative (Negative); Blood, Urine/Cath Negative (Negative); Color,Urine/Cath YELLOW (Yellow); Glucose,Urine/Cath (UA) Negative (Negative); Ketones,Urine/Cath Negative (Negative); Leukocyte Esterase,Cath Negative (Negative); Nitrate,Cath Negative (Negative); PH,Urine/Cath 6.5 (5.0-8.5); Protein,Urine/Cath Negative (Negative); Urobilinogen,Cath 0.2 EU/dl (0.2)
[2023-10-25 14:36] LABS: WBC,Urine/Cath Occasional #/hpf (0-3)
[2023-10-25] MEDS: KETOROLAC 30MG/ML VIAL 30 MG IV ×2 (15:24→22:02)
[2023-10-25] MEDS: CEFAZOLIN SODIUM 2 GM in 0.9 % SODIUM CHLORIDE 100 ML IV (15:59)
[2023-10-25] MEDS: PRENATAL MULTIVITAMIN W/IRON 1 EACH PO (18:37)
[2023-10-26 00:08] VITALS: BP 131/70; PULSE 94; RESP 18; TEMP 37.1
[2023-10-26] MEDS: CEFAZOLIN SODIUM 2 GM in 0.9 % SODIUM CHLORIDE 100 ML IV (00:09)
[2023-10-26] MEDS: ACETAMINOPHEN 500MG TAB 1000 MG PO ×4 (00:09→13:17)
[2023-10-26 04:02] VITALS: BP 133/75; PULSE 83; RESP 17; TEMP 36.8; O2SAT 98
[2023-10-26] MEDS: KETOROLAC 30MG/ML VIAL 30 MG IV (04:07)
[2023-10-26 07:43] LABS: Basophils % 0.5 % (0.1-2.0); Eosinophils # 0.3 K/mm3 (0.0-0.4); Eosinophils % 3.2 % (0.1-12.0); Hematocrit 35.5 % (37.0-47.0); Hemoglobin 11.4 g/dL (12.2-16.2); Lymphocytes % 23.4 % (10-50); Mean Corpuscular Hemoglobin 31.5 pg (27.0-31.2); Mean Corpuscular Volume 98.3 fl (81-99); Mean Platelet Volume 10.2 fl (7.4-10.4); Monocytes # 0.6 K/mm3 (0.1-1.0); Monocytes % 6.8 % (1.7-9.3); Neutrophils # 5.6 K/mm3 (1.8-7.8); Neutrophils % 66.2 % (37.0-80.0); Platelet Count 162 K/mm3 (142-424); Red Blood Count 3.62 M/mm3 (4.20-5.40); White Blood Count 8.5 K/mm3 (4.8-10.8)
--- NOTE | 2023-10-26 09:24 | P.DS_ITS ---
General Admission date:: 10/25/23 Discharge date: 10/26/23 HPI HPI HPI: Mrs Tiarra Goldman is a 33 yo at 39w2d who presents to [facility] for scheduled primary and tubal ligation. She has had good care. At first visit, she voiced request for elective . She was diagnosed with RA and recent hip xray demonstrated bilateral impingement. In addition, baby is breech presentation. She is complete with childbearing and desires permanent sterilization. Hospital Course Hospital Course Hospital Course: She was admitted on October 25, 2023 for primary lower segment transverse section and bilateral tubal ligation. She delivered a liveborn male child at 7:55 AM on the morning of October 25, 2023. The baby was in the breech presentation. He weighed 8 pounds 14 ounces and was 20 inches long. He had Apgars of 9 at 1 minute and 9 at 5 minutes. She has O Rh+ blood, she is rubella immune and was GBS unknown. She is breast- feeding. 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 Peres. She is discharged home to follow-up with Dr. Carreon in approximately 2 weeks time. She will continue with her vitamins and iron. She was given the usual instructions with respect to limiting her activity, driving and sexual activity. We have given her instructions with respect to wound care. She was given a prescription for Percocet 5/325 number 12 tablets. We have called her in a prescription for Toradol as well, number 20 tablets. Her condition on discharge is stable and improved. Exam Data for Last 24 hours Vital signs and Labs for Last 24 Hours: Temp Pulse Resp BP Pulse Ox O2 Del Method 98.3 F 83 17 133/75 98 Room Air 10/26/23 04:02 10/26/23 04:02 10/26/23 04:02 10/26/23 04:02 10/26/23 04:02 10/26/23 04:02 Laboratory Results - last 24 hr 10/25/23 05:32: Urine Opiates Screen Negative, Urine Methadone Screen Negative, Ur Barbituates Screen Negative, Ur Phencyclidine Scrn Negative, Ur Amphetamines Screen Negative, U Benzodiazepines Scrn Negative, Urine Cocaine Screen Negative, U Marijuana (THC) Screen Negative 10/25/23 06:10: Blood Type O Positive, Antibody Screen Negative, Crossmatch (AHG) See Detail 10/25/23 07:30: Urine Color Yellow, Urine Appearance Clear, Urine pH 6.5, Ur Specific [place] 1.020, Urine Protein Negative, Urine Glucose (UA) Negative, Urine Ketones Negative, Urine Blood Negative, Urine Nitrate Negative, Urine Bilirubin Negative, Urine Urobilinogen 0.2, Ur Leukocyte Esterase Negative, Urine RBC None, Urine WBC Occasional, Ur Squamous Epith Cells None, Urine Bacteria None 10/26/23 07:20: WBC 8.5, RBC 3.62 L, Hgb 11.4 L, Hct 35.5 L, MCV 98.3, MCH 31.5 H, MCHC 32.0, RDW 15.0, Plt Count 162, MPV 10.2, Neut % (Auto) 66.2, Lymph % (Auto) 23.4, [place] % (Auto) 6.8, Eos % (Auto) 3.2, Baso % (Auto) 0.5, Neut # (Auto) 5.6, Lymph # (Auto) 2.0, [place] # (Auto) 0.6, Eos # (Auto) 0.3, Baso # (Auto) 0.0 I & O for Last 24 hours: Intake & Output 10/23/23 10/24/23 10/25/23 10/26/23 11:59 11:59 11:59 11:59 Intake Total 1800 / 1800 Output Total 1250 / 1250 Balance 1800 / 1800 -1250 / -1250 Weight 216 lb Constitutional Constitutional: no acute distress *Routine HEENT Exam Head: Present normocephalic *Routine Neck Exam Neck: Present full ROM *Routine Respiratory Exam Respiratory: Present normal respiratory effort; Absent accessory muscle use Results Data Completed and Pending Labs on day of discharge: Labs from last 24 hours 10/26/23 10/25/23 10/25/23 07:20 07:30 06:10 WBC 8.5 RBC 3.62 L Hgb 11.4 L Hct 35.5 L MCV 98.3 MCH 31.5 H MCHC 32.0 RDW 15.0 Plt Count 162 MPV 10.2 Neut % (Auto) 66.2 Lymph % (Auto) 23.4 [place] % (Auto) 6.8 Eos % (Auto) 3.2 Baso % (Auto) 0.5 Neut # (Auto) 5.6 Lymph # (Auto) 2.0 [place] # (Auto) 0.6 Eos # (Auto) 0.3 Baso # (Auto) 0.0 Urine Color Yellow Urine Appearance Clear Urine pH 6.5 Ur Specific [place] 1.020 Urine Protein Negative Urine Glucose (UA) Negative Urine Ketones Negative Urine Blood Negative Urine Nitrate Negative Urine Bilirubin Negative Urine Urobilinogen 0.2 Ur Leukocyte Esterase Negative Urine RBC None Urine WBC Occasional Ur Squamous Epith Cells None Urine Bacteria None Urine Opiates Screen Urine Methadone Screen Ur Barbituates Screen Ur Phencyclidine Scrn Ur Amphetamines Screen U Benzodiazepines Scrn Urine Cocaine Screen U Marijuana (THC) Screen Blood Type O Positive Antibody Screen Negative Crossmatch (AHG) See Detail 10/25/23 05:32 WBC RBC Hgb Hct MCV MCH MCHC RDW Plt Count MPV Neut % (Auto) Lymph % (Auto) [place] % (Auto) Eos % (Auto) Baso % (Auto) Neut # (Auto) Lymph # (Auto) [place] # (Auto) Eos # (Auto) Baso # (Auto) Urine Color Urine Appearance Urine pH Ur Specific [place] Urine Protein Urine Glucose (UA) Urine Ketones Urine Blood Urine Nitrate Urine Bilirubin Urine Urobilinogen Ur Leukocyte Esterase Urine RBC Urine WBC Ur Squamous Epith Cells Urine Bacteria Urine Opiates Screen Negative Urine Methadone Screen Negative Ur Barbituates Screen Negative Ur Phencyclidine Scrn Negative Ur Amphetamines Screen Negative U Benzodiazepines Scrn Negative Urine Cocaine Screen Negative U Marijuana (THC) Screen Negative Blood Type Antibody Screen Crossmatch (AHG) DS: Diagnosis Discharge Diagnosis (1) with 39 completed weeks gestation: Status: Acute Code(s): Z3A.39 - 39 weeks gestation of (2) Breech presentation: Status: Acute Code(s): O32.1XX0 - Maternal care for breech presentation, not applicable or unspecified Qualifiers: Fetus number: single or unspecified fetus Qualified Code(s): O32.1XX0 - Maternal care for breech presentation, not applicable or unspecified (3) Maternal rheumatoid arthritis complicating : Status: Acute Code(s): O99.891 - Other specified diseases and conditions complicating ; M06.9 - Rheumatoid arthritis, unspecified (4) Asthma affecting , antepartum: Status: Acute Code(s): O99.519 - Diseases of the respiratory system complicating , unspecified trimester; J45.909 - Unspecified asthma, uncomplicated (5) Grand multipara: Status: Acute Code(s): Z64.1 - Problems related to multiparity (6) Request for sterilization: Status: Acute Code(s): Z30.2 - Encounter for sterilization Meds Home Medications and Allergies Home Medications Medication Instructions Recorded Confirmed Type albuterol sulfate 90 mcg/actuation 2 puff inhalation Q6HP PRN 06/18/23 10/25/23 History aerosol inhaler Shortness Of Breath fluticasone 250 mcg-salmeterol 50 2 inh inhalation BID #60 ea 08/14/23 10/25/23 Rx mcg/dose blistr powdr for inhalation (Advair Diskus) omeprazole 20 mg capsule,delayed 20 mg PO HS 10/25/23 10/25/23 History release vits no.126-ferrous fum 1 tab PO DAILY Supplement 10/25/23 10/25/23 History 28 mg iron-folic acid 800 mcg tablet (Classic ) ketorolac 10 mg tablet 10 mg PO Q6H #20 tabs 10/26/23 Rx oxycodone-acetaminophen 5 mg-325 1 tab PO Q6H PRN pain #12 tabs 10/26/23 Rx mg tablet New Prescriptions to Start Prescriptions: deniserolJonn Lara oxycodone-acetaminophen Jonn Lopez Allergies Allergy/AdvReac Type Severity Reaction Status Date / Time No Known Allergies Allergy Verified 10/17/23 15:32 Discharge Plan Disposition Patient Disposition: Home, Self-Care Discharge Order Discharge Orders: Discharge Order (Routine); Ordered 10/26/23 Ordered By: Jonn Lopez Follow up Plan Follow up with: Lucero Carreon DO [Staff Physician] - 11/08/23 10:15 am Prescriptions/Medication Reconciliation: New oxycodone-acetaminophen 5-325 mg tablet 1 tab PO Q6H PRN (Reason: pain) Qty: 12 0RF ketorolac 10 mg tablet 10 mg PO Q6H Qty: 20 0RF Continued fluticasone propion-salmeterol [Advair Diskus] 250-50 mcg/dose blister with device 2 inh inhalation BID Qty: 60 2RF albuterol sulfate 90 mcg/actuation HFA aerosol inhaler 2 puff inhalation Q6HP PRN (Reason: Shortness Of Breath) omeprazole 20 mg Capsule,Delayed Release(Dr/Ec) 20 mg PO HS Classic 28 mg iron- 800 mcg tablet 1 tab PO DAILY Problem Reconciliation Problems Reviewed?: Yes Patient Discharge Instructions ACTIVITY: No heavy lifting DIET: continue same diet Patient Instructions: Depression, Hemorrhage, DI for , DI for Pre-eclampsia, [facility] Post Discharge Instructions Providers Primary Care Provider: Murray Peres Admit Provider: Lucero Carreon Attending Provider: Lucero Carreon
--- NOTE | 2023-10-28 16:25 | EXP.ANES.II ---
[facility] Anesthesia Record Part II Anesthesia Record Part II Discharge Time: 09:13 Destination: Obstetric PACU nurse assessment reviewed?: Yes Patient Condition:: Good Anesthesia Complications:: None Swallowing reflex intact?: Yes Airway Patency: Patent Cyanosis?: No Blood Pressure: 110/72 SaO2: 99 Respiratory Rate: 16 Pulse Rate: 87 Temperature: 97.5 F Mental Status: Alert & Oriented Pain level:: 0 Nausea and/or vomitting:: None Intake, IV Amount: 0 Hydration: Adequate
[2023-10-28 16:26] VITALS: BP 110/72; PULSE 87; RESP 16; TEMP 36.4; O2SAT 99
== END 2023-10-26 17:30 | disposition home or self-care (01) | DRG 785 ==
PROVIDERS: Admitting Provider Obstetrics & Gynecology; PCP Internal Medicine Adolescent Medicine; Visit Provider Obstetrics & Gynecology
PROC: 10D00Z1 Extraction of Products of Conception, Low, Open Approach (ICD-10-PCS; principal; 2023-10-25 07:30)
DX: O32.1XX0 Maternal care for breech presentation, not applicable or unspecified (principal); Z37.0 Single live birth; O75.9 Complication of labor and delivery, unspecified; M06.9 Rheumatoid arthritis, unspecified; Z3A.39 39 weeks gestation of pregnancy
CPT/HCPCS: 59514; 58700; 36415; 59025; 80053; 80307; 81001; 85025; 86850; 94761; 96374; G0283

== ENCOUNTER 2023-10-30 20:07 | Outpatient (CLI) | payer BC, OTHER, SELFPAY ==
[2023-10-30 20:18] VITALS: BMI 31.8
[2023-10-30 20:45] LABS: Microscopic, Urine URINE MICROSCOPIC (MICROSCOPIC)
[2023-10-30 20:49] VITALS: BP 119/67; PULSE 91; RESP 18; TEMP 36.8; O2SAT 94
[2023-10-30 20:49] LABS: Basophils % 0.3 % (0.1-2.0); Eosinophils # 0.3 K/mm3 (0.0-0.4); Eosinophils % 5.4 % (0.1-12.0); Hematocrit 39.3 % (37.0-47.0); Hemoglobin 12.5 g/dL (12.2-16.2); Lymphocytes # 0.9 K/mm3 (0.7-4.5); Lymphocytes % 17.7 % (10-50); Mean Corpuscular HGB Conc 31.8 g/dL (31.8-35.4); Mean Corpuscular Hemoglobin 30.8 pg (27.0-31.2); Mean Corpuscular Volume 96.6 fl (81-99); Mean Platelet Volume 8.8 fl (7.4-10.4); Monocytes # 0.3 K/mm3 (0.1-1.0); Monocytes % 5.9 % (1.7-9.3); Neutrophils # 3.7 K/mm3 (1.8-7.8); Neutrophils % 70.8 % (37.0-80.0); Platelet Count 260 K/mm3 (142-424); Red Blood Count 4.07 M/mm3 (4.20-5.40); Red Cell Distribution Width 14.3 % (11.5-17.5); White Blood Count 5.3 K/mm3 (4.8-10.8)
--- NOTE | 2023-10-30 20:49 | PC.NURSE ---
Pt presents today to triage, had a schduled with tubal last week, with complaints of abdominal pain with light headedness and also reports that her breast seem very painful and is overall not feeling well. Surgical dressing was left on incision and pt agrees to allow to take it off, this rn took off surgical dressing and steri strips and cleaned with hibclens, site looks clean and intact, some redness noted around lower abdominal area but reports that she is wearing her binder and is not taking it off for any breaks. Reports that she has had a fever on and off. vitals all normal today. breasts appear to be soft, non tender and no not appear red. pt reports that she normally has two children breast feeding at the same time but does not have that and is only feeding infant currently and does not pump. Dr lamb gave orders to day shift for a cbc, lab here to draw that will await results
[2023-10-30 20:55] LABS: Appearance,Urine CLEAR (Clear); Blood, Urine Negative (Negative); Color,Urine YELLOW (Yellow); Glucose,Urine (UA) Negative (Negative); Ketones,Urine TRACE (Negative); Leukocyte Esterase,Urine Negative (Negative); Nitrate,Urine Negative (Negative); PH,Urine 6.5 (5.0-8.5); Protein,Urine TRACE (Negative); Specific Gravity, Urine >= 1.030 (1.005-1.030)
[2023-10-30 21:01] LABS: Bilirubin,Urine 1+ (Negative)
[2023-10-30 21:04] VITALS: BP 119/67; PULSE 91; RESP 18; TEMP 36.8; O2SAT 94; BMI 32.0
[2023-10-30 21:09] VITALS: BP 130/79; PULSE 91; RESP 17; TEMP 37.2; O2SAT 95
[2023-10-30 21:10] LABS: Bacteria,Urine 1+ /lpf; Mucus,Urine 1+ /lpf; Squamous Epithelial Cell,Urine Occasional #/hpf (0-5); WBC,Urine Occasional #/hpf (0-3)
[2023-10-30 21:19] LABS: Amphetamine/Metha Screen,Urine Negative ng/ml (<1000)
--- NOTE | 2023-10-30 21:19 | PC.NURSE ---
Spoke with Dr Birmingham at this time, reviewed labs and urine, okd to la home, verified and repeated back
[2023-10-30 21:20] LABS: Barbiturates Screen,Urine Negative ng/ml (<200)
[2023-10-30 21:21] LABS: Benzodiazepines Screen,Urine Negative ng/ml (<200)
[2023-10-30 21:22] LABS: Cannabinoid Screen,Urine Negative ng/ml (<50)
[2023-10-30 21:23] LABS: Cocaine Screen,Urine Negative ng/ml (<300)
[2023-10-30 21:24] LABS: Methadone Screen,Urine Negative ng/ml (<300)
[2023-10-30 21:25] LABS: Opiate Screen,Urine Negative ng/ml (<300); Phencyclidine Screen,Urine Negative ng/ml (<25)
--- NOTE | 2023-10-30 21:39 | PC.NURSE ---
Discharge education gone over at this time, questions encouraged and answered, pt v/u at this time
--- NOTE | 2023-10-30 21:39 | PC.NURSE ---
pt ambultory off the unit at this time with .
== END 2023-10-30 21:40 | disposition home or self-care (01) ==
LOC: OBOUT 20:09 → OB 20:09
PROVIDERS: PCP Obstetrics & Gynecology; Visit Provider Internal Medicine Adolescent Medicine
DX: O92.29 Other disorders of breast associated with pregnancy and the puerperium (principal); R42 Dizziness and giddiness
CPT/HCPCS: 36415; 80307; 81001; 85025; G0463